=== PATIENT | male | born 1960 | race Caucasian/White ===

== ENCOUNTER 2017-06-24 09:07 | Observation (INO) | payer OTHER ==
--- OUTSIDE RECORDS SUMMARY | 2017-06-24 09:48 | XMS REPORT ---
:1960 External Reference #:[id number] Author Organization [employer] Address [address] [facility] [address] [place] [address] Phone [phone] Care Team Providers Name Role Phone Daisy Ardon NP Primary Care Physician Unavailable Payers Type Date Identification Numbers Payment Provider Subscriber Commercial Policy Number: [id number] [employer] Number: [id number] PayID: [id number] [place] [address] Problems Date Description Provider Status Onset: 01/27/2013 Cervical spondylosis without myelopathy Jose J Gannon M.D. 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 Depakote 05/29/ Active Tablets DR 500mg 60tab 1 tab by G44.019 Jose J Oden 2018 s mouth twice a amelia White M.D. Bobo 03/17/ Active Capsules 300mg 90cap 1 po qam and Jose J Oden Carbonate 2018 s 2 qhs Zay White Gabapentin 12/24/ Active Capsules 300mg 120ca 1 po bid and G44.019 Jose J Oedn 2016 ps 2 qhs Zay White Sumatriptan 10/19/ Active Solution 4mg/0.5ML 12uni 1 injection Jose J Álvarez 2014 Auto-Inject ts twice daily Christopher, as needed on M.D. no more than 4 days/week. please include autoinjector with instructions. -out of med Oxycodone HCL 02/03/ Active Tablets 5mg 6tabs 1-2 by mouth Janet 2013 twice a day Peter, as needed for M.D. cluster headache. MDD 2 tabs. Verapamil HCL 07/05/ Active Tablets 80mg 240ta 3 po qa and Jose J Oden 2013 bs at night and Christopher, 2 at midday M.DHumble Tylenol 0000/ Active Capsules 325mg 2 tablets Unknown 0000 every 4 hours as needed for pain Prednisone 05/08/ Hx Tablets 20mg 30tab 4 tabs for 3 G44.019 Jose J Oden 2017 - s days then 3 Christopher, 05/28/ tabs for 3 M.D. 2017 days then 2 tab for 3 days then 1 tab for 3 days Prednisone 05/15/ Hx Tablets 20mg 30tab 4 tabs for 3 Jose J Oden 2016 - s days then 3 Christopher, 12/23/ tabs for 3 M.D. 2016 days then 2 tab for 3 days then 1 tab for 3 days-complete d Bobo 04/18/ Hx Capsules 300mg 60cap 1 po qday for Jose J SHumble Carbonate 2016 - s 1 week then 1 Christopher 07/17/ bid-not M.D. 2016 taking anymore. Prednisone 02/13/ Hx Tablets 20mg 30tab 4 tabs for 3 Jose J Oedn 2015 - s days then 3 Christopher, 03/03/ tabs for 3 M.D. 2016 days then 2 tab for 3 days then 1 tab for 3 days Topiramate 11/04/ Hx Caps 15mg 1 by mouth Jose J Oden 2015 - Sprinkle twice a day Christopher M.DHumble 2015 Topiramate 02/28/ Hx Tablets 100mg 60tab 1 by mouth Jose J Oden 2015 - s twice a day Christopher .DHumble 2015 Topiramate 02/13/ Hx Tablets 25mg 180ta 1 by mouth Jose J Oden 2014 - twice a day Regina, 02/28/ for 3 days M.D. 2015 then 2 twice a day for 3 days then 3 twice a day Prednisone 02/09/ Hx Tablets 20mg 30tab 4 po qam for SHumble 2014 3 days then 3 , 03/21/ qam for 3 M.D. 2016 days then 2 qam for 3 days then 1 qam for 3 days Depakote 10/27/ Hx Tablets DR 500mg 120ta 1000mg by Michelle 2014 - mouth bid. Mehdi, PROFESSIONAL MODEL 2015 Sumatriptan 10/19/ Hx Solution 4mg/0.5ML Michelle Succinate 2014 - Gnjuan, PROFESSIONAL MODEL Refill 2014 Zithromax 10/10/ Hx Tablets 250mg 1tabs Take as 381.01 Michelle Z-Aguilar 2014 - directed Gnjuan, PROFESSIONAL MODEL 2014 Prednisone 10/05/ Hx Tablets 20mg 30tab 2 tab for 3 Michelle 2014 days then 1 MORAIMA Harding 10/24/ tab for 3 2014 days Imitrex 09/01/ Hx Tablets 100mg 10tab 1 tab at Michelle 2014 onset of Gnjuan, PROFESSIONAL MODEL 09/01/ migraine, on 2014 no more than 2 days per week. Imitrex /10/ Hx Tablets 50mg 12tab take 1 tab at [place] 2014 onset of Mehdi, PROFESSIONAL MODEL 09/01/ migraine. june 2014 repeat once in 2 hours if needed. take on no more than 2 days a week. Sumatriptan 09/01/ Hx Solution 20mg/Act 12via 1 dose Michelle 2014 - nasally at Mehdi, PROFESSIONAL MODEL 10/05/ onset of 2014 headache. Use on no more than 2 days a week. Bobo 06/16/ Hx Capsules 300mg 60cap 1 by mouth Jose J Oden Carbonate 2014 every morning , and 1 every M.D. 2015 night at bedtime Prednisone 02/02/ Hx Tablets 20mg 30tab 4 tabs for 3 Jose J Oden 2013 - days then 3 , 06/15/ tabs for 3 M.D. 2014 days then 2 tab for 3 days then 1 tab for 3 days Hydrocodone-A 10/19/ Hx Tablets 7.5-325mg 60tab 1 po Q6h prn Jose J cetaminophen 2013 pain Glouster, M.D. 2014 Hydrocodone-A 10/13/ Hx Tablets 7.5-325mg 60tab 721.0 Jose J cetaminophen 2013 Glouster, M.D. 2014 Hydrocodone-A 09/20/ Hx Tablets 7.5-325mg 60tab 1 po q 6h prn 721.0 Jose J cetaminophen 2013 pain Glouster, M.D. 2013 Aleve 08/09/ Hx Capsules 220mg 60cap prn Jos Ej SHumble 2013 Christopher, M.D. 2015 Prednisone 07/05/ Hx Tablets 20mg 30tab 4 tabs for 3 S. 2013 days then 3 Christopher, 07/24/ tabs for 3 M.D. 2013 days then 2 tab for 3 days then 1 tab for 3 days No Active 01/25/ Unknown Medications 2012 - 2012 Sumatriptan 09/07/ Hx Solution 6mg/0.5ML 10uni 1 injection Michelle Succinate 2012 twice a day MORAIMA Harding 10/19/ as needed on 2014 no more than 2 days a week (please include autoinjector with instructions) Oxycodone/Tesfaye 09/07/ Hx Tablets 7.5-325mg 24tab 1 tab po tid Jose J Oden taminophen 2012 - prn headache Christopher, M.D. 2012 Bobo 09/07/ Hx Capsules 300mg 90cap 1 qam and 2 Jose J Carla. Carbonate 2012 - contra [facility] Christopher, M.D. 2012 Zomig ZMT 04/10/ Hx Tablets 5mg 10tab 1 bid prn Jose J Oden 2012 - Dispers s headache Christopher, M.D. 2012 Zomig 04/10/ Hx Solution 5mg 10uni 1 spray bid Jose J SHumble 2012 - ts prn headache Christopher, M.D. 2012 Depakote 03/24/ Hx Tablets DR 250mg 150ta 2 qam and 3 Jose J Oden 2012 - bs contra [facility] Christopher, M.D. 2012 Oxycodone HCL 03/11/ Hx Capsules 5mg 60cap 1 tid prn Jose J Oden 2012 - s pain Christopher, .D. 2012 Verapamil HCL 03/11/ Hx Tablets 120mg 150ta 1 tid for 1 Jose J SHumble 2012 - bs week then 2 Christopher, 01/06/ qam and 1 in M.D. 2013 PM and hs for 1 week then 2 qam, 1 in PM and 2 qhs Gabapentin 03/11/ Hx Capsules 300mg 150ca 1 qam and qhs Jose J SHumble 2012 - ps Christopher, .D. 2012 Zithromax 03/11/ Hx Tablets 500mg 5tabs 1 qd for 5 . Tri-Aguilar 2012 Christopher, .D. 2012 Prednisone 12/18/ Hx Tablets 20mg 20tab 4 tabs for 2 Jose J SHumble 2011 - days then 3 Christopher, 03/31/ tabs for 2 .D. 2012 days then 2 tab for 2 days then 1 tab for 2 days Bobo 12/18/ Hx Capsules 300mg 90cap 1 qam and 2 Jose J Akshat Carbonate 2011 - q Christopher, D. 2012 Zomig / Hx Nasal prn Jose J Oden - Christopher, D. 2012 Prednisone / Hx Tablets 1 tab x 10 Unknown - pt 01/06/ unsure of mg. 2012 Triamterene/H / Hx Capsules 37.5-25mg 1 by mouth Unknown ydrochlorothi 0000 - every day azide 2014 Coumadin / Hx Tablets 4mg as directed ( Unknown 0000 - currently 03/11/ taking 8 mg 2018 qd) Vital Signs Date Vital Result Comment 06/18/2017 Height 74 inches 6'2" Weight 211.00 lb Heart Rate 70 /min BP Systolic 116 mmHg BP Diastolic 82 mmHg Respiratory Rate 16 /min Pain Level 0 O2 % BldC Oximetry 98 % BMI (Body Mass Index) 27.1 kg/m2 05/29/2017 Height 74 inches 6'2" Weight 212.12 lb Heart Rate 78 /min BP Systolic 132 mmHg BP Diastolic 82 mmHg BMI (Body Mass Index) 27.2 kg/m2 05/08/2017 Height 74 inches 6'2" Weight 218.50 lb Heart Rate 82 /min BP Systolic Sitting 126 mmHg BP Diastolic Sitting 70 mmHg Respiratory Rate 16 /min BMI (Body Mass Index) 28.1 kg/m2 04/17/2017 Height 75 inches 6'3" Weight 216.00 lb Heart Rate 74 /min BP Systolic 118 mmHg BP Diastolic 78 mmHg BMI (Body Mass Index) 27.0 kg/m2 03/12/2017 Height 75 inches 6'3" Weight 203.00 lb Heart Rate 71 /min BP Systolic Sitting 116 mmHg BP Diastolic Sitting 68 mmHg Respiratory Rate 16 /min Pain Level 0 O2 % BldC Oximetry 97 % Ra BMI (Body Mass Index) 25.4 kg/m2 01/13/2017 Height 75 inches 6'3" Weight 203.00 lb Heart Rate 68 /min BP Systolic Sitting 138 mmHg BP Diastolic Sitting 70 mmHg Respiratory Rate 16 /min BMI (Body Mass Index) 25.4 kg/m2 12/24/2016 Height 75 inches 6'3" Weight 201.38 lb Heart Rate 78 /min BP Systolic 126 mmHg BP Diastolic 88 mmHg BMI (Body Mass Index) 25.2 kg/m2 07/17/2016 Height 75 inches 6'3" Weight 194.00 lb Heart Rate 80 /min BP Systolic 116 mmHg BP Diastolic 68 mmHg Respiratory Rate 16 /min BMI (Body Mass Index) 24.2 kg/m2 05/15/2016 Height 75 inches 6'3" Weight 195.00 lb Heart Rate 84 /min BP Systolic 98 mmHg BP Diastolic 68 mmHg Respiratory Rate 12 /min no difficulties breathing. Broke several ribs 3wk Pain Level 0 O2 % BldC Oximetry 98 % BMI (Body Mass Index) 24.4 kg/m2 04/18/2016 Height 75 inches 6'3" Weight 195.00 lb Heart Rate 78 /min BP Systolic Sitting 25917 mmHg Respiratory Rate 16 /min BMI (Body Mass Index) 24.4 kg/m2 11/05/2015 Height 75 inches 6'3" Weight 200.00 lb Heart Rate 83 /min BP Systolic Sitting 118 mmHg BP Diastolic Sitting 76 mmHg Respiratory Rate 16 /min O2 % BldC Oximetry 97 % BMI (Body Mass Index) 25.0 kg/m2 03/21/2015 Height 75 inches 6'3" Weight 200.00 lb Heart Rate 80 /min BP Systolic Sitting 118 mmHg BP Diastolic Sitting 64 mmHg Respiratory Rate 14 /min BMI (Body Mass Index) 25.0 kg/m2 02/28/2015 Height 75 inches 6'3" Weight 199.00 lb Heart Rate 76 /min BP Systolic Sitting 108 mmHg BP Diastolic Sitting 72 mmHg Respiratory Rate 14 /min BMI (Body Mass Index) 24.9 kg/m2 02/13/2015 Height 75 inches 6'3" Weight 208.00 lb Heart Rate 80 /min BP Systolic Sitting 112 mmHg BP Diastolic Sitting 68 mmHg Respiratory Rate 16 /min BMI (Body Mass Index) 26.0 kg/m2 12/15/2014 Height 75 inches 6'3" Weight 199.00 lb Heart Rate 68 /min BP Systolic Sitting 100 mmHg BP Diastolic Sitting 62 mmHg Respiratory Rate 12 /min BMI (Body Mass Index) 24.9 kg/m2 12/12/2014 Height 75 inches 6'3" Heart Rate 88 /min BP Systolic Sitting 102 mmHg BP Diastolic Sitting 64 mmHg Respiratory Rate 16 /min 11/17/2014 Height 75 inches 6'3" Weight 199.00 lb Heart Rate 88 /min BP Systolic Sitting 130 mmHg BP Diastolic Sitting 62 mmHg Respiratory Rate 14 /min BMI (Body Mass Index) 24.9 kg/m2 10/25/2014 Height 75 inches 6'3" Weight 230.00 lb Heart Rate 92 /min BP Systolic Sitting 106 mmHg BP Diastolic Sitting 70 mmHg Respiratory Rate 20 /min BMI (Body Mass Index) 28.7 kg/m2 10/10/2014 Height 75 inches 6'3" Heart Rate 80 /min BP Systolic Sitting 116 mmHg BP Diastolic Sitting 74 mmHg Respiratory Rate 16 /min 08/01/2014 Height 75 inches 6'3" Heart Rate 68 /min BP Systolic Sitting 108 mmHg BP Diastolic Sitting 66 mmHg Respiratory Rate 16 /min 06/30/2014 Height 75 inches 6'3" Weight 211.00 lb Heart Rate 80 /min BP Systolic Sitting 122 mmHg BP Diastolic Sitting 68 mmHg Respiratory Rate 16 /min BMI (Body Mass Index) 26.4 kg/m2 06/16/2014 Height 75 inches 6'3" Weight 205.00 lb Heart Rate 76 /min BP Systolic Sitting 104 mmHg BP Diastolic Sitting 68 mmHg Respiratory Rate 16 /min BMI (Body Mass Index) 25.6 kg/m2 03/29/2014 Height 75 inches 6'3" Weight 207.00 lb Heart Rate 72 /min BP Systolic Sitting 112 mmHg BP Diastolic Sitting 70 mmHg Respiratory Rate 16 /min BMI (Body Mass Index) 25.9 kg/m2 10/31/2013 Height 75 inches 6'3" Weight 208.00 lb Heart Rate 60 /min BP Systolic Sitting 120 mmHg BP Diastolic Sitting 70 mmHg Pain Level 6 neck BMI (Body Mass Index) 26.0 kg/m2 10/13/2013 Height 75 inches 6'3" Weight 213.00 lb Heart Rate 78 /min BP Systolic Sitting 122 mmHg BP Diastolic Sitting 70 mmHg Pain Level 9 R shoulder & neck BMI (Body Mass Index) 26.6 kg/m2 09/20/2013 Height 75 inches 6'3" Weight 204.00 lb Heart Rate 82 /min BP Systolic Sitting 120 mmHg BP Diastolic Sitting 84 mmHg Pain Level 9 neck BMI (Body Mass Index) 25.5 kg/m2 08/09/2013 Height 75 inches 6'3" Weight 204.00 lb Heart Rate 84 /min BP Systolic Sitting 106 mmHg BP Diastolic Sitting 64 mmHg Respiratory Rate 16 /min BMI (Body Mass Index) 25.5 kg/m2 07/05/2013 Height 75 inches 6'3" Weight 200.00 lb Heart Rate 92 /min BP Systolic Sitting 118 mmHg BP Diastolic Sitting 76 mmHg Respiratory Rate 20 /min BMI (Body Mass Index) 25.0 kg/m2 04/18/2013 Height 73 inches 6'1" Weight 210.00 lb BP Systolic 114 mmHg BP Diastolic 82 mmHg Pain Level 0 BMI (Body Mass Index) 27.7 kg/m2 03/28/2013 Height 73 inches 6'1" Weight 208.00 lb BP Systolic 102 mmHg BP Diastolic 70 mmHg Pain Level 0 BMI (Body Mass Index) 27.4 kg/m2 03/07/2013 Height 73 inches 6'1" Weight 201.00 lb BP Systolic 116 mmHg BP Diastolic 80 mmHg Pain Level 0 BMI (Body Mass Index) 26.5 kg/m2 01/25/2013 Height 73 inches 6'1" Weight 199.00 lb BP Systolic 106 mmHg BP Diastolic 70 mmHg Pain Level 9 neck BMI (Body Mass Index) 26.3 kg/m2 01/06/2013 Height 73 inches 6'1" Weight 199.00 lb BP Systolic 112 mmHg BP Diastolic 80 mmHg Pain Level 9 neck, right shoulder and arm BMI (Body Mass Index) 26.3 kg/m2 09/28/2012 Height 73 inches 6'1" Heart Rate 64 /min BP Systolic Sitting 96 mmHg BP Diastolic Sitting 58 mmHg Respiratory Rate 12 /min 09/14/2012 Height 73 inches 6'1" Heart Rate 76 /min BP Systolic Sitting 118 mmHg BP Diastolic Sitting 70 mmHg Respiratory Rate 12 /min 09/07/2012 Height 73 inches 6'1" Weight 225.00 lb Heart Rate 68 /min BP Systolic Sitting 130 mmHg BP Diastolic Sitting 78 mmHg Respiratory Rate 12 /min BMI (Body Mass Index) 29.7 kg/m2 08/03/2012 Height 73 inches 6'1" Weight 225.00 lb Heart Rate 80 /min BP Systolic 106 mmHg BP Diastolic 68 mmHg Respiratory Rate 12 /min BMI (Body Mass Index) 29.7 kg/m2 05/05/2012 Heart Rate 82 /min BP Systolic Sitting 122 mmHg BP Diastolic Sitting 76 mmHg Respiratory Rate 16 /min 03/31/2012 Heart Rate 74 /min BP Systolic 112 mmHg BP Diastolic 72 mmHg Respiratory Rate 14 /min Results Test Date Test Result H/L Range Note Laboratory test finding 12/14/2014 TSH (Thyroid Stim 1.14 ?IU/mL 0.34- 5.60 Horm) Basic Metabolic Panel 12/14/2014 Sodium 138 mmol/L 133-145 Potassium 3.9 mmol/L 3.5-5.0 Chloride 104 mmol/L 101-111 Co2 Carbon Dioxide 27 mmol/L 22-32 Anion Gap 7 mmol/L 2-11 Glucose 89 mg/dL 70-100 Blood Urea Nitrogen 8 mg/dL 6-24 Creatinine 0.94 mg/dL 0.67-1.17 BUN/Creatinine Ratio 8.5 8-20 Calcium 9.0 mg/dL 8.6-10.3 Egfr Non- 83.9 >60 Egfr 108.0 >60 1 Laboratory test finding 12/14/2014 Bobo 0.31 mmol/L Low 0.6-1.2 Laboratory test finding 11/26/2014 Valproic Acid <pending> (Depakene) Bobo <pending> Basic Metabolic Panel 02/11/2013 Sodium 136 mmol/L 133-145 Potassium 4.2 mmol/L 3.5-5.0 Chloride 102 mmol/L 101-111 Co2 Carbon Dioxide 28.0 mmol/L 22-32 Anion Gap 6.0 mmol/L 2-11 Glucose 94 mg/dL 70-100 Blood Urea Nitrogen 8 mg/dL 6-24 Creatinine 0.80 mg/dL 0.50-1.40 BUN/Creatinine Ratio 10.0 8-20 Calcium 9.2 mg/dL 8.1-9.9 Egfr Non- 101.9 >60 Egfr 131.1 >60 2 CBC No Diff 02/11/2013 White Blood Count 9.7 10^3/uL 4.8-10.8 Red Blood Count 5.00 10^6/uL 4.0-5.4 Hemoglobin 14.7 g/dL 14.0-18.0 Hematocrit 43 % 42-52 Mean Corpuscular Volume 86 fL 80-94 Mean Corpuscular Hemoglobin 29 pg 27-31 Mean Corpuscular HGB Conc 34 g/dL 31-36 Red Cell Distribution Width 13 % 10.5-15 Platelet Count 298 10^3/uL 150-450 Mean Platelet Volume 8 um3 7.4-10.4 1 Because ethnic data is not always readily available, this report includes an eGFR for both -Americans and non- Americans. The National Kidney Disease Education Program (NKDEP) does not endorse the use of the MDRD equation for patients that are not between the ages of 18 and 70, are , have extremes of body size, muscle mass, or nutritional status, or are non- or non-. According to the National Kidney Foundation, irrespective of diagnosis, the stage of the disease is based on the level of kidney function: Stage Description GFR(mL/min/1.73 m(2)) 1 Kidney damage with normal or decreased GFR 90 2 Kidney damage with mild decrease in GFR 60-89 3 Moderate decrease in GFR 30-59 4 Severe decrease in GFR 15-29 5 Kidney failure <15 (or dialysis) 2 Because ethnic data is not always readily available, this report includes an eGFR for both -Americans and non- Americans. The National Kidney Disease Education Program (NKDEP) does not endorse the use of the MDRD equation for patients that are not between the ages of 18 and 70, are , have extremes of body size, muscle mass, or nutritional status, or are non- or non-. According to the National Kidney Foundation, irrespective of diagnosis, the stage of the disease is based on the level of kidney function: Stage Description GFR(mL/min/1.73 m(2)) 1 Kidney damage with normal or decreased GFR 90 2 Kidney damage with mild decrease in GFR 60-89 3 Moderate decrease in GFR 30-59 4 Severe decrease in GFR 15-29 5 Kidney failure <15 (or dialysis) Procedures Date CPT Code Description Status 02/18/2013 20667 Anterior Instrumentation 2-3 Vertebral Segments Completed 02/18/2013 23203 arthrodesis,anterior interbody incl disc space Completed prep,discectomy,de 02/18/2013 87909 Allograft For Spine Surgery,Structural ([facility]) Completed Encounters Type Date Location Provider CPT E/M Dx Office Visit 05/29/2017 [facility] Jose J White 82764 G44.019 9:15a M.D. Office Visit 05/08/2017 [facility] Jose J White 08029 G44.019 11:15a M.D. Office Visit 04/17/2017 [facility] Jose J White 94744 G44.019 8:30a M.D. Office Visit 03/12/2017 Hannah White 20876 G44.019 11:30a [facility] R45.4 [facility] [address]4400 G44.019 [facility] White M.D. Office Visit 12/24/2016 10:45a [facility] Jose J Oden 89778 G44.Harjit White M.D. Office Visit 07/17/2016 11:45a Hannah Oden 09992 G44.019 [facility] White M.D. Office Visit 05/15/2016 1:45p Hannah Oden 25078 G44.019 [facility] White M.D. Office Visit 04/18/2016 11:45a Gilbert Oden 35360 G44.019 Services Of Basilio White M.D. Office Visit 11/05/2015 3:00p Gilbert Oden 71351 G44.019 Services Of Basilio White M.D. Office Visit 03/21/2015 4:00p [facility] Jose J Oden 73388 G44.019 Services Of Basilio White M.D. I82.402 Office Visit 02/28/2015 4:00p [facility] Jose J Oden 54042 G44.019 Services Of Basilio White M.D. Office Visit 02/13/2015 10:45a [facility] Jose J Oden 54563 G44.019 Zay White Office Visit 12/15/2014 10:45a [facility] Jose J Oden 56385 G44.019 Zay White Office Visit 12/12/2014 3:00p [facility] [place] [address] G44.019 Services Of [employer] Clerk Office Visit 11/17/2014 3:00p [facility] [place] [address] G44.019 Services Of [employer] Clerk Office Visit 10/25/2014 3:00p [facility] [place] [address] 339.01 Services Of [employer] Control Clerk Office Visit 10/10/2014 3:00p [facility] [place] [address] 339.01 Services Of Invoice Control Clerk 381.01 Office Visit 10/05/2014 3:00p [facility] [place] [address] 339.01 Services Of [employer] Control Clerk Office Visit 08/01/2014 3:00p [facility] [place] [address] 339.01 Services Of [employer] Control Clerk Office Visit 06/30/2014 3:00p [facility] [place] [address] 339.01 Services Of [employer] Clerk Office Visit 06/16/2014 3:30p [facility] Jose J White 15380 339.01 Services Of [employer] Control Clerk M.D. Office Visit 03/29/2014 1:15p [facility] Jose J White 48560 339.01 Services Of [employer] Control Clerk M.D. Office Visit 10/31/2013 3:00p [facility] Jose J Gannon 19852 721.0 Invoice Control Clerk M.D. Office Visit 10/13/2013 3:00p [facility] Jose J Gannon 46268 721.0 Invoice Control Clerk M.D. Office Visit 09/20/2013 3:00p [facility] Jose J Gannon 76546 721.0 Invoice Control Clerk M.D. Office Visit 08/09/2013 4:00p [facility] Jose J White, 09025 339.01 Services Of Invoice Control Clerk M.D. Office Visit 07/05/2013 2:45p [facility] Jose J White, 61822 339.01 Services Of Invoice Control Clerk M.D. Office Visit 01/25/2013 1:00p [facility] Jose J Gannon 74665 721.0 Invoice Control Clerk M.D. Office Visit 01/06/2013 11:30a [facility] Jose J Gannon 09377 721.0 Invoice Control Clerk M.D. Office Visit 11/30/2012 2:30p [facility] Jose J White 40987 339.01 Services Of Invoice Control Clerk M.D. Office Visit 09/28/2012 4:00p [facility] Jose J White, 41987 339.01 Services Of Invoice Control Clerk M.D. Office Visit 09/14/2012 4:00p [facility] Jose J White, 00268 339.01 Services Of Invoice Control Clerk M.D. Office Visit 09/07/2012 4:00p [facility] Jose J White, 99043 339.01 Services Of Invoice Control Clerk M.D. Office Visit 08/03/2012 3:45p [facility] Jose J White, 02577 339.01 Services Of Invoice Control Clerk M.D. Office Visit 05/05/2012 3:00p [facility] Jose J White, 10226 339.01 Services Of Invoice Control Clerk M.D. Office Visit 03/31/2012 3:00p [facility] Jose J White, 38953 339.01 Services Of Invoice Control Clerk M.D. Office Visit 03/11/2012 12:00p [place]/Gilbert White, 24848 339.01 Neurologic Serv Of [employer] Control Clerk M.D. Office Visit 10/22/2011 1:30p [place]Gilbert White 83049 339.01 Neurologic Serv Of [employer] Control Clerk M.D. Plan of Care Future Appointment(s):07/13/2017 8:30 am - Jose J White M.D. at [facility]/ 3:45 pm - Jose J White M.D. at [facility] [address]06/18/2017 - Jose J White M.D.G44.011 Episodic cluster headache, intractableNew Medication:Baclofen 10 mgFollow up:2 - 4 WEEKSRecommendations:stop depakote Start Baclofen and follow directions on bottle
--- OUTSIDE RECORDS SUMMARY | 2017-06-24 09:48 | XMS REPORT ---
:1960 External Reference #:[id number] Author Organization Sequence Address [address] [facility] [address] [place] [address] Phone [phone] Care Team Providers Name Role Phone Daisy Ardon NP Primary Care Physician Unavailable Payers Type Date Identification Numbers Payment Provider Subscriber Commercial Policy Number: [id number] [employer] Number: [id number] PayID: [id number] [place] [address] Problems Date Description Provider Status Onset: 01/27/2013 Cervical spondylosis without myelopathy Jose J Gannon M.D. 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 Pewamo 03/17/ Active Capsules 300mg 90cap 1 po qam and Jose J Oden Carbonate 2017 s 2 morgan White M.D. Gabapentin 12/24/ Active Capsules 300mg 120ca 1 po bid and G44.019 Jose J Oden 2017 ps 2 qlamar White M.D. Sumatriptan 10/19/ Active Solution 4mg/0.5ML 12uni 1 injection Jose J Álvarez 2014 Auto-Inject ts twice daily Christopher, as needed on M.D. no more than 4 days/week. please include autoinjector with instructions. Oxycodone HCL 02/03/ Active Tablets 5mg 6tabs 1-2 by mouth Janet 2013 twice a day Souleymanedery, as needed for M.D. cluster headache. MDD 2 tabs. Verapamil HCL 07/05/ Active Tablets 80mg 240ta 3 po qam and Jose J Oden 2013 bs at night and Christopher, 2 at midday M.D. Tylenol 0000/ Active Capsules 325mg 2 tablets Unknown 0000 every 4 hours as needed for pain Prednisone 05/08/ Hx Tablets 20mg 30tab 4 tabs for 3 G44.019 Jose J Oden 2017 - days then 3 Christopher, 05/28/ tabs for 3 M.D. 2017 days then 2 tab for 3 days then 1 tab for 3 days Prednisone 05/15/ Hx Tablets 20mg 30tab 4 tabs for 3 Jose J Oden 2016 - days then 3 Christopher, 12/23/ tabs for 3 M.D. 2016 days then 2 tab for 3 days then 1 tab for 3 days-complete d Pewamo 04/18/ Hx Capsules 300mg 60cap 1 po qday for Jose J Oden Carbonate 2016 - 1 week then 1 Christopher, 07/17/ bid-not M.D. 2016 taking anymore. Prednisone 02/13/ Hx Tablets 20mg 30tab 4 tabs for 3 Jose J Oden 2015 - days then 3 Christopher, 03/03/ tabs for 3 M.D. 2016 days then 2 tab for 3 days then 1 tab for 3 days Topiramate 11/04/ Hx Caps 15mg 1 by mouth Jose J Oden 2015 - Sprinkle twice a day Christopher, M.D. 2015 Topiramate 02/28/ Hx Tablets 100mg 60tab 1 by mouth Jose J Oden 2015 - s twice a day Christopher, M.D. 2015 Topiramate 02/13/ Hx Tablets 25mg 180ta 1 by mouth Jose J Oden 2014 - bs twice a day Christopher, 02/28/ for 3 days M.D. 2015 then 2 twice a day for 3 days then 3 twice a day Prednisone 02/09/ Hx Tablets 20mg 30tab 4 po qam for Jose J S. 2014 - 3 days then 3 Christopher, 03/21/ qam for 3 M.D. 2015 days then 2 qam for 3 days then 1 qam for 3 days Depakote 10/27/ Hx Tablets DR 500mg 120ta 1000mg by Michelle 2014 - mouth bid. Mehdi, [employer] 2015 Sumatriptan 10/19/ Hx Solution 4mg/0.5ML Michelle Succinate 2015 - Cartridge Gnjuan, [employer]ERT Refill 2014 Zithromax 10/10/ Hx Tablets 250mg 1tabs Take as 381.01 Michelle Z-Aguilar 2014 - directed Mehdi [employer] 2014 Prednisone 10/05/ Hx Tablets 20mg 30tab 2 tab for 3 Michelle 2014 days then 1 MORAIMA Harding 10/24/ tab for 3 2014 days Imitrex 09/01/ Hx Tablets 100mg 10tab 1 tab at [place] 2014 onset of MORAIMA Harding 09/01/ migraine, on 2014 no more than 2 days per week. Imitrex 10/ Hx Tablets 50mg 12tab take 1 tab at Michelle 2014 onset of MORAIMA Harding 09/01/ migraine. june 2014 repeat once in 2 hours if needed. take on no more than 2 days a week. Sumatriptan 09/01/ Hx Solution 20mg/Act 12via 1 dose Michelle 2014 - nasally at MORAIMA Harding 10/05/ onset of 2014 headache. Use on no more than 2 days a week. Pewamo 06/16/ Hx Capsules 300mg 60cap 1 by mouth Jose J S. Carbonate 2014 every morning [place], 11/03/ and 1 every M.D. 2015 night at bedtime Prednisone 02/02/ Hx Tablets 20mg 30tab 4 tabs for 3 Jose J S. 2013 - days then 3 [place], 06/15/ tabs for 3 M.D. 2014 days then 2 tab for 3 days then 1 tab for 3 days Hydrocodone-A 10/19/ Hx Tablets 7.5-325mg 60tab 1 po Q6h prn Jose J cetaminophen 2013 - pain Cowen, 03/28/ M.D. 2014 Hydrocodone-A 10/13/ Hx Tablets 7.5-325mg 60tab 721.0 Jose J cetaminophen 2013 - Cowen, M.D. 2014 Hydrocodone-A 09/20/ Hx Tablets 7.5-325mg 60tab 1 po q 6h prn 721.0 Jose J cetaminophen 2013 - pain Jagdeep, M.D. 2013 Aleve 08/09/ Hx Capsules 220mg 60cap prn Jose J Oden 2013 Christopher, M.D. 2014 Prednisone 07/05/ Hx Tablets 20mg 30tab 4 tabs for 3 SHumble 2013 days then 3 Christopher, 07/24/ tabs for 3 M.D. 2013 days then 2 tab for 3 days then 1 tab for 3 days No Active 01/25/ Hx Unknown Medications 2012 - 2012 Sumatriptan 09/07/ Hx Solution 6mg/0.5ML 10uni 1 injection Michelle Succinate 2012 - twice a day MORAIMA Harding 10/19/ as needed on 2014 no more than 2 days a week (please include autoinjector with instructions) Oxycodone/Tesfaye 09/07/ Hx Tablets 7.5-325mg 24tab 1 tab po tid Jose J Oden taminophen 2012 - prn headache Christopher, M.D. 2012 Pewamo 09/07/ Hx Capsules 300mg 90cap 1 qam and 2 Jose J Carla. Carbonate 2012 - s [facility] Christopher, M.D. 2012 Zomig ZMT 04/10/ Hx Tablets 5mg 10tab 1 bid prn Jose J Oden 2012 - Dispers s headache Christopher, M.D. 2012 Zomig 04/10/ Hx Solution 5mg 10uni 1 spray bid Jose J Oden 2012 - ts prn headache Christopher, M.D. 2012 Depakote 03/24/ Hx Tablets DR 250mg 150ta 2 qam and 3 Jose J S. 2012 - [facility] Christopher, M.D. 2012 Oxycodone HCL 03/11/ Hx Capsules 5mg 60cap 1 tid prn Jose J Oden 2012 - s pain Christopher, M.D. 2012 Verapamil HCL 03/11/ Hx Tablets 120mg 150ta 1 tid for 1 Jose J SHumble 2012 - bs week then 2 Christopher, 01/06/ qam and 1 in M.D. 2012 PM and hs for 1 week then 2 qam, 1 in PM and 2 qhs Gabapentin 03/11/ Hx Capsules 300mg 150ca 1 qam and qhs Jose J SHumble 2012 - ps Christopher, .D. 2012 Zithromax 03/11/ Hx Tablets 500mg 5tabs 1 qd for 5 S. Tri-Aguilar 2012 - Christopher, .D. 2012 Prednisone 12/18/ Hx Tablets 20mg 20tab 4 tabs for 2 Jose J SHumble 2011 then 3 Christopher, 03/31/ tabs for 2 .D2012 days then 2 tab for 2 days then 1 tab for 2 days Pewamo 12/18/ Hx Capsules 300mg 90cap 1 qam and 2 Jose J Oden Carbonate 2011 - qhs Christopher, .D. 2012 Zomig / Hx Nasal prn Jose J Akshat - Christopher, .D. 2012 Prednisone / Hx Tablets 1 tab x 10 Unknown - days pt 01/06/ unsure of mg. 2012 Triamterene/H / Hx Capsules 37.5-25mg 1 by mouth Unknown ydrochlorothi 0000 - every day azide 2014 Coumadin / Hx Tablets 4mg as directed ( Unknown 0000 - currently 03/11/ taking 8 mg 2018 qd) Vital Signs Date Vital Result Comment 05/29/2017 Height 74 inches 6'2" Weight 212.12 [...] Heart Rate 78 /min BP Systolic Sitting 66596 mmHg Respiratory Rate 16 /min BMI (Body [...] 108.0 >60 1 Laboratory test finding 12/14/2014 [place] 0.31 mmol/L Low 0.6-1.2 Laboratory test finding 11/26/2014 Valproic Acid <pending> (Depakene) [place] <pending> Basic Metabolic Panel 02/11/2013 Sodium 136 [...] Procedures Date CPT Code Description Status 02/18/2013 14921 Anterior Instrumentation 2-3 Vertebral Segments Completed 02/18/2013 65342 arthrodesis,anterior interbody incl disc space Completed prep,discectomy,de 02/18/2013 89538 Allograft For Spine Surgery,Structural ([place]) Completed Encounters Type Date Location Provider CPT E/M Dx Office Visit 05/08/2017 [facility] Jose J White 53419 G44.019 11:15a M.D. Office Visit 04/17/2017 [facility] Jose J White 87026 G44.019 8:30a M.D. Office Visit 03/12/2017 [place]/Gilbert White 23133 G44.019 11:30a [facility] Collazo R45.4 Office Visit 01/13/2017 3:30p [place] 10554 G44.019 Services Of Basilio White M.D. Office Visit 12/24/2016 10:45a Neurohospitalist Kenisha Oden 23278 G44.019 Zay White Office Visit 07/17/2016 11:45a Jose MariaGilbert Oden 53852 G44.019 [facility] White M.D. Office Visit 05/15/2016 1:45p Hannah Oden 75051 G44.019 [facility] White M.D. Office Visit 04/18/2016 11:45a Gilbert Oden 97699 G44.019 Services Of Basilio White M.D. Office Visit 11/05/2015 3:00p Gilbert Oden 82682 G44.019 Services Of Basilio White M.D. Office Visit 03/21/2015 4:00p Gilbert Oden 20884 G44.019 Services Of Basilio White M.D. I82.402 Office Visit 02/28/2015 4:00p Gilbert Oden 47768 G44.019 Services Of Basilio White M.D. Office Visit 02/13/2015 10:45a [facility] Jose J Oden 19719 G44.019 Zay White Office Visit 12/15/2014 10:45a Neurohospitalist [facility] Jose J Oden 97413 G44.019 Zay White Office Visit 12/12/2014 3:00p [place] [facility] Michelle Mehdi, [employer]ESSERT 65901 G44.019 Services Of [employer] Office Visit 11/17/2014 3:00p [place] [facility] Michelle Harding, [employer]ESSERT 88244 G44.019 Services [facility] [employer] Office Visit 10/25/2014 3:00p [place] [facility] Michelle Harding, [employer]ERT 47987 339.01 Services Of [employer] Office Visit 10/10/2014 3:00p [place] [facility] Michelle Mehdi, [employer]ERT 28540 339.01 Services Of [employer] 381.01 Office Visit 10/05/2014 3:00p [place] [facility] Michelle Harding, [employer]ESSERT 96625 339.01 Services Of [employer] Office Visit 08/01/2014 3:00p [place] [facility] Michelle Harding, [employer]ESSERT 93000 339.01 Services Of [employer] Office Visit 06/30/2014 3:00p [place] [facility] Michelle Harding, [employer]ESSERT 14009 339.01 Services Of [employer] Office Visit 06/16/2014 3:30p [place] [facility] Jose J White, 51626 339.01 Services Of [employer] M.D. Office Visit 03/29/2014 1:15p [place] [facility] Jose J White 53401 339.01 Services Of [employer] M.D. Office Visit 10/31/2013 3:00p [facility] Services Of Jose J Gannon 03449 721.0 Basilio M.D. Office Visit 10/13/2013 3:00p [facility] Jose J Gannon 70607 721.0 Basilio M.D. Office Visit 09/20/2013 3:00p [facility] Jose J Gannon 51012 721.0 Basilio M.D. Office Visit 08/09/2013 4:00p [place] [facility] Jose J White 78032 339.01 Services Of [employer] M.D. Office Visit 07/05/2013 2:45p [place] [facility] Jose J White 31410 339.01 Services Of [employer] M.D. Office Visit 01/25/2013 1:00p [facility] Of Jose J Gannon 19283 721.0 Basilio M.D. Office Visit 01/06/2013 11:30a [facility] Of Jose J Gannon 30495 721.0 [employer] M.D. Office Visit 11/30/2012 2:30p [place] [facility] Jose J White, 02914 339.01 Services Of [employer] M.D. Office Visit 09/28/2012 4:00p [place] [facility] Jose J White, 39710 339.01 Services Of [employer] M.D. Office Visit 09/14/2012 4:00p [place] [facility] Jose J White, 39084 339.01 Services Of [employer] M.D. Office Visit 09/07/2012 4:00p [place] [facility] Jose J White, 94306 339.01 Services Of [employer] M.D. Office Visit 08/03/2012 3:45p [place] [facility] Jose J White, 30422 339.01 Services Of [employer] M.D. Office Visit 05/05/2012 3:00p [place] [facility] Jose J White, 30963 339.01 Services Of [employer] M.D. Office Visit 03/31/2012 3:00p [place] [facility] Jose J White, 19676 339.01 Services Of [employer] M.D. Office Visit 03/11/2012 12:00p [place]/Gilbert White, 09713 339.01 [facility] [employer] M.D. Office Visit 10/22/2011 1:30p Jose Maria/Gilbert White, 26468 339.01 [facility] M.D. Plan of Care Future Appointment(s):07/13/2017 8:30 am - Jose J White M.D. at [place] [facility]10/13/2017 3:45 pm - Jose J White M.D. at [place] [facility]05/29/2017 - Jose J White M.D.G44.019 Episodic cluster headache, not intractableNew Medication:Depakote 500 mgFollow up:2 - 4 WEEKS
[2017-06-24 10:54] LABS: ABS Basophils 0.2 10^3/ul (0-0.2); ABS Eosinophils 0.2 10^3/ul (0-0.6); ABS Lymphocytes 1.8 10^3/ul (1.0-4.8); ABS Monocytes 0.7 10^3/ul (0-0.8); ABS Neutrophils 7.8 10^3/ul (1.5-7.7); ABS Nucleated RBC 0 10^3/ul; Eosinophil % 2.2 % (0-6); Hematocrit 44 % (42-52); Lymphocyte % 17.1 % (25-47); Mean Corpuscular HGB Conc 34 g/dl (31-36); Mean Corpuscular Hemoglobin 31 pg (27-31); Mean Corpuscular Volume 91 fL (80-94); Mean Platelet Volume 7.2 um3 (7.4-10.4); Nucleated Red Blood Cells % 0; Platelet Count 267 10^3/ul (150-450); Red Blood Count 4.79 10^6/ul (4.0-5.4); Red Cell Distribution Width 14 % (10.5-15); White Blood Count 10.8 10^3/ul (3.5-10.8)
[2017-06-24] MEDS ORDERED: Dihydroergotamine (D.H.E.)* 1 MG/ML 1 ML AMP IV SLOW PU ONE ×2 (11:05)
[2017-06-24 11:13] LABS: EGFR Non-African American 89.9 (>60)
[2017-06-24] MEDS: Metoclopramide IV* 5 MG/ML 2 ML VIAL IV PRN (11:42)
[2017-06-24] MEDS ORDERED: methylPREDNISolone 125 MG* 2 ML VIAL IV SCH (12:00)
[2017-06-24] MEDS: Verapamil TAB* 80 MG PO SCH (12:12)
[2017-06-24] MEDS: methylPREDNISolone 125 MG* 250 MG in NS 0.9% 100 ML* 100 ML IVPB SCH (12:18)
--- NOTE | 2017-06-24 14:05 | CONS ---
NEUROLOGY CONSULTATION REPORT: DATE OF CONSULT: 06/24/17 REASON FOR CONSULT: Neurology was consulted by Dr. Cleaning to evaluate for consistent chronic cluster headaches. The patient was a direct admit by Dr. Jose J White. The history was obtained by the patient and by discussing the case with Dr. hWite. CHIEF COMPLAINT: Intermittent severe headaches. HISTORY OF PRESENT ILLNESS: Jeremias Foreman is a 56-year-old right-handed man with history of cluster headache for 10 years, cervical spondylosis status post ACDF multilevel, chronic shoulder pain, who has no history of cardiovascular disease, who has had increased episodes of severe headaches. The patient has had the same type of headache for the last 10 years; however, the frequency and severity of the headaches have changed. Over the last 2 months, the patient has headaches almost daily. He used to have headache-free periods of 2-3 month intervals at least 3-4 times a year. However over the last 2 months, the patient again has had headaches frequently. The headaches can last minutes up to 2 hours. If he takes sumatriptan, that can get rid of the headache within 10 minutes. If he does not take the sumatriptan, the headaches can last for 2- 3 hours. The headaches used to come only at night but now seem to be sporadic throughout the day. His last headache was last night. He describes the pain as stabbing pain that starts in the left facial region radiating to the left temporal region. When he does have the pain, the pain is 10/10 in severity. He would prefer to have a nail hammered into his head rather than experiencing the type of pain that he is currently experiencing due to the headache. He feels that the left temporal veins become "bulge." He has ptosis of the left eye, lacrimation in the left eye and left eye conjunctiva. He denied any nausea or vomiting with headaches. He does occasionally have some blurring of the vision on the left eye. He denied any jaw claudication. Currently, the patient is asymptomatic. He has tried multiple therapies both preventative and acute. He was on oxygen initially 10 years ago but that did not help. Currently , he is taking baclofen, gabapentin, lithium and verapamil. He was on Depakote but that was recently discontinued. The baclofen replaced Depakote. He had significant tremors with the Depakote. The best thing that works currently is the sumatriptan injections; however, he could only use a few a month due to availability and to prevent side effects. He did receive oral steroids in the past with minimal effect. The patient's daughter who is at bedside stated that he has been complaining of sinus pressure. The patient had an occipital nerve block last Thursday and still had 2 headaches following the injection. Lidocaine was only given in occipital nerve block. PAST MEDICAL HISTORY: Open heart surgery as a child for patent ductus arteriosus. PAST SURGICAL HISTORY: Appendix removal, right lower extremity surgery for compartment syndrome. FAMILY HISTORY: There is no history of stroke or seizures, no history of migraine headaches. 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 He denied any recent tobacco or alcohol use. REVIEW OF SYSTEMS: A 10-point review of systems was obtained and otherwise negative except for what was mentioned in the HPI. PHYSICAL EXAM: Vitals: Temperature of 98.5, pulse of 66, respiratory rate of 16, oxygen saturation 100 and blood pressure of 133/77. General: Well- nourished, well- developed man in no acute distress. Head is normocephalic without obvious abnormality. Nose: Temporal tenderness. The superficial temporalis artery is palpable. There is no pain to palpation. No jaw claudication. Eyes: Conjunctivae and corneas are clear. Funduscopic examination revealed sharp disk margin with normal venous pulsation. Neck is supple and symmetrical. Lungs: Clear to auscultation bilaterally. Cardiovascular: Regular rate and rhythm. Normal radial pulses. Extremities: Normal range of motion with no cyanosis. Skin: No skin lesions or lacerations. Psych: Affect is broad and normal mood. Easy to establish rapport. Neurological Examination: Mental Status: Awake, alert and oriented to person , place, time, and general circumstances. Speech and language including expression, naming, repetition and comprehension was assessed and found to be normal. Cranial Nerves: Normal confrontation. Pupil mid range and reactive to light. Normal consensual response. Extraocular muscles are intact. No ptosis, conjugate or asymmetric nystagmus. Sensation intact on the forehead, cheeks and jaw region. No facial droop. Able to hear throughout the history process. Symmetric palatal elevation, normal strength against resistance. Tongue is symmetric and midline with atrophy or fasciculation. Motor function: No abnormal movements. No pronator drift. Normal bulk and tone throughout. Motor strength is 5/5 throughout. Reflexes; 1+ throughout, plantar flexor response. Sensation is intact to light touch throughout. Normal vibration and proprioception at the great toes bilaterally. Coordination is normal finger-to- nose and rapid alternating movements. Gait and station: Narrow based, normal stance and gait, no ataxia. DIAGNOSTIC STUDIES/LAB DATA: The patient has not had any intracranial imaging for over 10 years. Current laboratory workup is pending. ASSESSMENT: 1. Chronic cluster headaches - the patient was admitted to break the headache cycle. He has had intractable headache that has limited his ability to function at work and at home. We also would need to rule out any secondary causes for his worsening headaches. Need to rule out for any underlying sinus disease or structural abnormalities in the brainstem. PLAN/RECOMMENDATIONS: The patient has been admitted to the hospitalist service. We will start dihydroergotamine injections. Protocol is as following: I will first give a test dose of DHE 0.5 mg IV over 2 minutes. We need to make sure we have an EKG prior to the test dose injection. We will need to monitor for any blood pressure instability or chest pain. If so, we need to discontinue the DHE. If not, we will repeat the dose after one hour. If he can tolerate the DHE, we will repeat 1 mg dose every 8 hours for a 24-hour period. The patient again should be receiving Reglan 10 mg right before the test dose and every 8 hours following that. We will also start the patient on Solu-Medrol 250 mg IV every 12 hours. We have also ordered MRI of the brain and MRA of the head without contrast as well as CT of the sinuses to evaluate for any sinus disease. Neuro checks every 4 hours should be done. Continue oral hydration and advance his diet as tolerated. I have discussed this case with Dr. Cleaning and Dr. White. [id number]/[facility] #: [id number] TODD
[2017-06-24] MEDS: Baclofen TAB* 10 MG PO SCH ×2 (14:09→20:57)
[2017-06-24] MEDS: Gabapentin CAP(*) 300 MG PO SCH (14:09)
--- NOTE | 2017-06-24 15:36 | RAD ---
HISTORY: Intractable headache COMPARISONS: April 06, 2007 TECHNIQUE: 3-D axial uhar-cr-kcxeia MR angiography was performed of the head to include the [place] of [place]. Multiple 3-D maximum intensity projection reconstructions are also submitted for review. FINDINGS: RIGHT VERTEBRAL ARTERY: The distal right vertebral artery is unremarkable, without stenosis. LEFT VERTEBRAL ARTERY: The distal left vertebral artery is unremarkable, without stenosis. DOMINANCE: The vertebral arteries are codominant. DISTAL RIGHT CERVICAL INTERNAL CAROTID ARTERY: The distal right cervical internal carotid artery is unremarkable. DISTAL LEFT CERVICAL INTERNAL CAROTID ARTERY: The distal left cervical internal carotid artery is unremarkable. INTRACRANIAL CIRCULATION: There is no aneurysm, vascular malformation, occlusion, or stenosis of the visualized intracranial circulation. The anterior communicating artery complex is clear. Bilateral posterior communicating arteries are identified. Incidentally noted is a fenestration of the proximal third of the basilar artery. The anterior commuting artery is dominant over the A1 segment of the left anterior cerebral artery. OTHER FINDINGS: None IMPRESSION: NO ANEURYSM, VASCULAR MALFORMATION, OCCLUSION, OR STENOSIS OF THE VISUALIZED INTRACRANIAL CIRCULATION.
--- NOTE | 2017-06-24 15:39 | RAD ---
HISTORY: Intractable headaches COMPARISONS: May 05, 2007 TECHNIQUE: The following sequences were obtained of the head: Sagittal T1-weighted images, axial T2-weighted images, axial FLAIR images, axial susceptibility weighted images, axial T1-weighted images. Additionally, axial diffusion-weighted images were obtained with calculated apparent diffusion coefficients. FINDINGS: HEMORRHAGE/INFARCT: There is no hemorrhage or acute infarct. MASSES/SHIFT: There is no mass or shift. EXTRA-AXIAL SPACES/MENINGES: There are no extra-axial fluid collections. SULCI AND VENTRICLES: The sulci and ventricles are normal in size and position for the patient's stated age. CEREBRUM: There are no focal parenchymal abnormalities. BRAINSTEM: There are no focal parenchymal abnormalities. CEREBELLUM: There are no focal parenchymal abnormalities. The cerebellar tonsils are normal in size and position. SELLA: The sella is normal. PINEAL: The pineal region is clear. CP ANGLE/TEMPORAL BONES: The labyrinthine structures are grossly normal. VESSELS: Normal flow-voids are noted within the visualized vertebral vasculature. DIFFUSION ABNORMALITIES: There are no diffusion abnormalities. PARANASAL SINUSES/MASTOIDS: There is minimal thickening of ethmoid air cells. There is trace left mastoid effusion. ORBITS: The orbits are unremarkable. BONES AND SOFT TISSUE: No bone or soft tissue abnormalities are noted. OTHER: None IMPRESSION: 1. MINIMAL SINUS MUCOSAL INFLAMMATORY DISEASE, WITH A TRACE LEFT MASTOID EFFUSION, WITHOUT AIR-FLUID LEVEL TO SUGGEST ACUTE SINUSITIS. 2. OTHERWISE, UNREMARKABLE MRI OF THE BRAIN.
--- NOTE | 2017-06-24 15:50 | RAD ---
CLINICAL HISTORY: Cluster headaches COMPARISON: MRI of the brain dated June 24, 2017 TECHNIQUE: Contiguous axial CT images were obtained through the paranasal sinuses, without intravenous contrast, with coronal and sagittal multiplanar reformations. FINDINGS: NASAL CAVITY: Septum: The septum is midline without deviation. Right: Clear Left: Clear SINUSES AND DRAINAGE PATHWAYS: Frontal sinuses: Unremarkable. Maxillary sinuses: Unremarkable Ethmoid sinuses: There is minimal mucosal thickening of ethmoid air cells. Ostiomeatal complex: Patent without obstruction or occlusion. Sphenoid sinuses: Unremarkable. Anatomic variations: No significant variations. Orbits: Unremarkable. Anterior cranial fossa: Normal. Other findings: There is a trace left mastoid effusion. IMPRESSION: MINIMAL SINUS MUCOSAL INFLAMMATORY DISEASE, WITHOUT AIR-FLUID LEVEL TO SUGGEST ACUTE SINUSITIS.
--- NOTE | 2017-06-24 15:52 | HP ---
HISTORY AND PHYSICAL: DATE OF ADMISSION: 06/24/17. ADMITTING PROVIDER: Dr. Sylvester Cleaning. PRIMARY CARE PHYSICIAN: Daisy Ardon NP. PRIMARY OUTPATIENT NEUROLOGIST: Dr. White. CHIEF COMPLAINT: Cluster headaches 10/10, recurrent. HISTORY OF PRESENT ILLNESS: Jeremias Foreman is a 56-year-old male, past medical history of DVT, completed course of warfarin for about 2 years; 10 years of cluster headaches that had worsened significantly since getting a nerve block last with Dr. White in his office. He had 2 excruciating ones that day and then again the night prior to admission, 10/10 throbbing, feeling like his eyes would burst out of his head. His girlfriend called Dr. White who recommended presenting for a direct admission the following day. He does state that he does get relief with the sumatriptan within about 10 minutes with both of these episodes, but he is about to run out. Dr. White was recommending MRI of his head with and without, an MRA, CT sinus without IV steroids, DHE protocol with pre-DHE Reglan and continuation of his other meds including the verapamil, gabapentin, lithium, and baclofen. He is also recommending high flow nasal cannula 15 L p.r.n. Patient attests he is not currently having any headache like symptoms. The case was also discussed with Dr. Mendoza, the insulation worker apprentice neurologist today. PAST MEDICAL HISTORY: DVT, cluster headaches, current smoker, binge drinker and history of cervical spondylosis C3-C4 with cord compression. PAST SURGICAL HISTORY: Anterior cervical diskectomy and allograft fusion at C3- C4 with anterior instrumentation. MEDICATIONS: Include: 1. Baclofen 10 mg p.o. t.i.d. 2. Verapamil 160 mg q.a.m. and noon and 240 mg q.h.s. 3. [place] 600 mg q.h.s. and 300 mg q.a.m. 4. Gabapentin 300 mg 8 a.m. and afternoon and 600 mg at bedtime. ALLERGIES: No known drug allergies. FAMILY HISTORY: Mom is alive, healthy. His dad fell, broke his hip, and from complications of that at age 70. 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 He attests to occasional alcohol use, but when asked to quantify, he says about 12 pack a weekend. His medical surrogate will have to be clarified. REVIEW OF SYSTEMS: Complete 14-point review of systems is negative except as per HPI. Denies any chest pain, shortness of breath, swelling in his legs. PHYSICAL EXAMINATION GENERAL APPEARANCE: In no acute distress, sitting in the admitting area, in plain clothes. VITAL SIGNS: 98.5, pulse 66, respiratory rate is 16, satting 100% on room air, blood pressure 133/77. HEENT: Normocephalic, atraumatic. Pupils equal, round and reactive to light. Extraocular motions intact. No scleral icterus. PULMONARY: Clear to auscultation bilaterally with no wheezes, rales, or rhonchi. CARDIOVASCULAR: Regular rate and rhythm with no murmurs, rubs or gallops. ABDOMEN: Soft, nontender, nondistended. No rebound, no guarding. No Urrutia's sign. EXTREMITIES: Warm, well perfused. No peripheral edema. NEUROLOGIC: Cranial nerves II through XII intact. Moving all extremities. Ambulating without any gait instability. SKIN: No lesions or rashes. LABORATORY DATA: White count 7.8, hemoglobin 15.0, hematocrit 44, platelets 267. Sodium 138, potassium 4.0, chloride 105, carbon dioxide 27, BUN 12, creatinine 0.88, glucose 91, magnesium 1.9, total bili is 0.4, AST 11, ALT 8, alk phos 68. IMAGING: None. EKG, bradycardic at 58, QTc 444. ASSESSMENT AND PLAN: Jeremias Foreman is a 56-year-old with 10 years of cluster headaches, worsened over the last 5 days after a nerve block, 10/10 excruciating pain when they occur, though relieved with sumatriptan. Dr. White is requesting a direct admission for IV steroids and DHE protocol. Patient was also discussed with Dr. Mendoza. I will continue his lithium, gabapentin, verapamil at home doses, get an MRI of his brain, MRA of the head. Dr. White requested the CT sinus without contrast. He is requesting Solu- Medrol with 250 mg IV q.12 hours and DHE 0.5 mg IV q.8 hours with Reglan 10 mg 5 minutes before the DHE treatment. For any headaches, high-flow 15 L nasal cannula p.r.n. He is being admitted under observation status. He is a full code. We will clarify with his medical surrogates. He is on a regular diet. [id number]/[facility] #: [id number] TDOD
[2017-06-24] MEDS ORDERED: Dihydroergotamine (D.H.E.)* 1 MG/ML 1 ML AMP IV ONE (19:00)
[2017-06-24] MEDS ORDERED: Verapamil TAB* 80 MG PO SCH (20:00)
[2017-06-24] MEDS ORDERED: Gabapentin CAP(*) 300 MG PO SCH (21:00)
[2017-06-24] MEDS ORDERED: Lithium Carbonate TAB* 300 MG PO SCH (21:00)
[2017-06-25] MEDS: methylPREDNISolone 125 MG* 250 MG in NS 0.9% 100 ML* 100 ML IVPB SCH ×2 (00:22→12:25)
[2017-06-25] MEDS ORDERED: Lithium Carbonate TAB* 300 MG PO SCH (08:00)
[2017-06-25] MEDS: Verapamil TAB* 80 MG PO SCH ×2 (09:07→12:31)
[2017-06-25] MEDS: Baclofen TAB* 10 MG PO SCH ×2 (09:07→13:56)
[2017-06-25] MEDS: Gabapentin CAP(*) 300 MG PO SCH ×2 (09:07→13:56)
[2017-06-25] MEDS ORDERED: Dihydroergotamine (D.H.E.)* 1 MG/ML 1 ML AMP IV SLOW PU ONE ×2 (09:30→17:30)
[2017-06-25] MEDS: Metoclopramide IV* 5 MG/ML 2 ML VIAL IV PRN (10:39)
[2017-06-25] MEDS ORDERED: methylPREDNISolone 125 MG* 2 ML VIAL ONE (11:49)
[2017-06-25 16:50] VITALS: BP 110/60
--- NOTE | 2017-06-26 06:53 | PN ---
NEUROLOGY PROGRESS NOTE: DATE OF SERVICE: 06/25/17 Neurology is following for the evaluation and treatment of chronic cluster headaches. CHIEF COMPLAINT: "No complaints. I would like to go home." SUBJECTIVE: The patient tolerated DHE without any side effects. He denied any chest pain, shortness of breath, nausea or vomiting. He has not had any headaches. He did not have any headaches overnight. He is extremely optimistic that this treatment is working. He received a total of 0.5 mg yesterday x2 and he will complete 1 mg x2 today. REVIEW OF SYSTEMS: As per HPI. PHYSICAL EXAMINATION: Vitals: Temperature of 98.2, pulse of 63, respiratory rate of 16, oxygen saturation of 99%, blood pressure of 116/68. General: Well-nourished, well-developed, alert, cooperative man in no acute distress. Normocephalic and atraumatic without obvious abnormality. Conjunctivae and cornea are clear. Supple neck. No carotic bruits. Clear to auscultation bilaterally. Regular rate and rhythm. Normal S1, S2. Extremities : Normal range of motion with no cyanosis. Neurological Examination: Mental status: Awake and alert; oriented to person, place, time and general circumstance. Cranial Nerves: Pupils equal, round, and reactive to light. Normal consensual response. Extraocular muscles are intact. No facial asymmetry. Tongue is symmetric and midline. Motor Examination: No abnormal movements. No pronator drift. 5/5 throughout. Reflexes: 1+ throughout with flexor plantar response. Sensation is intact to light touch throughout. Coordination: Normal [id number] and rapid alternating movement. Gait is narrow-based with normal stance and gait. LABS, IMAGING, AND OTHER DIAGNOSTIC TESTING: Brain MRI without contrast completed on 06/24/17 showed minimal sinus mucosal inflammatory disease with a trace left mastoid effusion without air fluid level to suggest acute sinusitis. Otherwise unremarkable MRI of the brain. I personally reviewed the study. MRA head without contrast showed no evidence of intracranial stenosis or aneurysm. CT of the sinus completed on 06/24/17 showed minimal sinus mucosal inflammatory disease without air-fluid level to suggest acute sinusitis. Electrocardiogram completed on 06/24/17 showed sinus bradycardia with a rate of less than 60. Otherwise normal EKG. Laboratory data: WBC of 10.8, platelets 267,000, sodium 138, ESR of 10. ASSESSMENT: Chronic cluster headache - seems to be responding to DHE and steroid therapy; however, this is still early on the course as the patient's symptoms are intermittent. We have given him a total of 3 mg over the last 36 hours of DHE. He has received Solu-Medrol 250 mg every 8 hours. The patient has not had any side effects from DHE and is tolerating the medication well. He denied any nausea or vomiting. He has not needed Reglan. The patient is ready to go home. PLAN: Continue all preventive therapy with baclofen, gabapentin, lithium, and verapamil. I prescribed the patient Medrol Dosepak to take 60 mg daily for 3 days, 40 mg daily for 3 days, 20 mg daily for 3 days and to wean off by taking 10 mg daily for 3 days. He was also prescribed subcutaneous DHE 1 mL to take every 8 hours for the next 3 days. I instructed the patient to not use DHE if he has elevation in his blood pressure or symptoms of acute chest pain. He should not use DHE within 6 hours of having administered a triptan and do not administer triptan within 24 hours of having taken DHE. TIME SPENT: I spent a total of 30 minutes and greater than 50% was spent reviewing the plan of care and treatment plan with the patient and his partner at bedside. I also discussed the case in detail with the patient's provider, Andi, and bedside nurse. The patient will call Dr. White for any questions or if he has any symptoms of headaches. [id number]/[facility] #: [id number] MTDD
[2017-06-26] MEDS ORDERED: medroxyPROGESTERone TAB* 10 MG PO SCH ×2 (09:00)
[2017-06-26] MEDS ORDERED: methylPREDNISolone TAB* 4 MG PO SCH (09:00)
--- NOTE | 2017-06-26 09:05 | DS ---
CC: Daisy Ardon NP; Dr. White; Dr. Darin Chen.* DISCHARGE SUMMARY: DATE OF ADMISSION: 06/24/17 DATE OF DISCHARGE: 06/25/17 PRIMARY CARE PROVIDER: Daisy rAdon NP OUTPATIENT NEUROLOGIST: Dr. White. MY ATTENDING WHILE IN THE HOSPITAL: Dr. Darin Chen* (dictated by TON Combs). PRIMARY DISCHARGE DIAGNOSIS: Cluster headache. SECONDARY DISCHARGE DIAGNOSES: 1. Deep vein thrombosis. 2. Tobacco abuse. 3. Alcohol abuse. 4. Cervical spondylosis. STUDIES DONE WHILE IN THE HOSPITAL: Brain MRI from 06/24/17 read as minimal mucosal inflammatory disease with trace left mastoid effusion without air-fluid levels/acute sinusitis. Otherwise, unremarkable MRI of the brain. Sinuses CT read as minimal sinus mucosal inflammatory disease without air-fluid levels suggest acute sinusitis. Electrocardiogram from 06/24/17 shows normal sinus rhythm, normal axis. No ST segment changes. No blocks or hypertrophy, rate of 58, QTc of 444. No abnormalities. No significant changes from previous exam. Head MRA from 06/24/17 read as no aneurysm, vascular malformation, occlusion, or stenosis of the visualized intracranial circulation. MEDICATIONS: At discharge: 1. Verapamil 240 mg p.o. q.p.m. 2. Emerald carbonate 300 mg p.o. q.8 a.m. 3. Gabapentin 600 mg p.o. bedtime. 4. Gabapentin 300 mg p.o. b.i.d. 5. Verapamil 160 mg p.o. at 0800 and 1200. 6. Emerald carbonate 600 mg p.o. bedtime. 7. Baclofen 10 mg p.o. t.i.d. 8. Methylprednisolone 64 mg p.o. daily with taper. 9. Dihydroergotamine 1 mg subcutaneous q.8 hours x9. New medications at discharge: 1. Methylprednisolone. 2. Dihydroergotamine. Medications discontinued at discharge: None. HOSPITAL COURSE: This is a brief summary of the patient's presentation. For more detail, please see the history and physical from Dr. Sylvester Cleaning on . In brief, the patient is a 56-year-old male with past medical history significant for the above, who presented with 3 severe cluster headaches on the day of admission. This is after a nerve block last . The patient had been getting significant episodes and was using sumatriptan to abort them. The patient is on medications as above and these are not sufficient to control his medications. He was using sumatriptan more than his outpatient neurologist was comfortable, so he was admitted to the hospital for a DHE protocol. The patient was seen in consultation by Dr. Mendoza. The patient was given IV steroids and Reglan. The patient had no headaches while in the hospital. The patient had an EKG after DHE, which showed no ischemia. The patient otherwise tolerated everything well. The patient received a test dose of DHE followed by another 1 mg and then 2 mg on 06/25/17. The patient had no hypertension, tachycardia, chest pain, shortness of breath, or other reaction to the DHE. The patient remained headache-free. The patient had no other laboratory or vital sign abnormalities. The patient was stable for discharge to home on 06/25 with continuation of the DHE protocol and a steroid taper. PHYSICAL EXAMINATION AT DISCHARGE: General: The patient is a 56-year-old male , who appears stated age, sitting comfortably in bed, in no acute distress. Vital signs at the time of discharge: Temperature 98.1, pulse rate 66, respiratory rate 16, oxygen saturation 97% on room air, blood pressure 110/60. HEENT: Head normocephalic, atraumatic. Sclerae are anicteric. No conjunctival injection. Nasal mucosa moist. Oral mucosa moist. No pharyngeal erythema, discharge, or exudate. Neck: Supple, nontender. No lymphadenopathy. No carotid bruit auscultated. Cardiac: Regular rate and rhythm. No clicks, murmurs, gallops, or rubs. Pulses are 2+ in bilateral dorsal pedis, posterior tibialis, and radial areas. Respiratory: Clear to auscultation bilaterally. No wheezes, rales, or rhonchi. Good air exchange bilaterally. Abdomen: Soft, nontender, nondistended. Bowel sounds present and normoactive in all 4 quadrants. No hepatosplenomegaly. No abdominal bruits auscultated. Genitourinary: No suprapubic or CVA tenderness. Skin: Clean, dry , and intact. No rash. Neuro: Cranial nerves II through XII intact and no focal deficits. No photophobia, phonophobia, headache. Normal gait. No other abnormalities. Psychiatric: Pleasant and cooperative. DISCHARGE PLAN: The patient will be discharged to home. The patient will be continued on DHE subcutaneous, [facility] and take his first dose in the morning and then 8 subsequent doses. With that the patient will be on a steroid taper for at least the next 13 days. The patient will follow up closely with his primary care provider and his neurologist, Dr. White. It has been instructed to the patient that he should take his DHE routinely, so as to get the full effect of the DHE protocol. The patient should return to hospital for alarming symptoms such as chest pain, shortness of breath. The patient should call his neurologist for recurrent headaches. The patient should take oxygen if available when the headache occurs at high flow. The patient should engage in activity as tolerated. Exercise can help with cluster headaches. The patient should have regular unrestricted diet. The patient should quit smoking. TIME SPENT: Approximately 60 minutes were spent on this discharge, 30 of which were spent [id number] with the patient obtaining history and physical and discussing treatment plan. TON COMBS [id number]/[facility] #: [id number] TODD
== END 2017-06-25 18:52 | disposition home or self-care (01) ==
LOC: SSU 09:42
PROVIDERS: ADMIT Internal Medicine; ATTEND Student in an Organized Health Care Education/Training Program
DX: G44.009 Cluster headache syndrome, unspecified, not intractable (principal); I82.409 Acute embolism and thrombosis of unspecified deep veins of unspecified lower extremity; M47.892 Other spondylosis, cervical region; F17.210 Nicotine dependence, cigarettes, uncomplicated; F10.10 Alcohol abuse, uncomplicated; Z79.899 Other long term (current) drug therapy; R00.1 Bradycardia, unspecified; H53.8 Other visual disturbances; J32.9 Chronic sinusitis, unspecified
CPT/HCPCS: 36415; 70486; 70544; 70551; 80053; 83735; 85025; 85652; 93005; 96365; 96366; 96375; 96376; A9270-GY; G0378; J1110; J2765; J2930

== ENCOUNTER 2018-03-24 07:35 | Emergency (ER) | payer OTHER ==
--- OUTSIDE RECORDS SUMMARY | 2018-03-24 07:41 | XMS REPORT | Continuity of Care Document ---
:1960 External Reference #:[id number] Author Name Kevin Toussaint MD Address [address] [place] [address] Care Team Providers Name Role Phone Jose J White M.D. Care Team Information Magnetic Tester Unavailable Daisy Ardon NP Primary Care Physician Unavailable Payers Type Date Identification Numbers Payment Provider Subscriber Policy Number: [id number] [place] Jeremias Foreman PayID: [id number] [address] [place] [address] Advance Directives Description No Information Available Problems Date Description Provider Status Onset: 11/08/2012 Dysfunction of eustachian tube Kevin Toussaint MD Active Onset: 03/18/2018 Other specified disorders of Eustachian Kevin Toussaint MD Active tube, left ear Onset: 03/18/2018 Chronic serous otitis media Kevin Toussaint MD Active Onset: 10/19/2014 Perforation of tympanic membrane Kevin Toussaint MD Active Family History Date Family Member(s) Problem(s) Comments General Migraine Social History Type Date Description Comments Sex Unknown 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 Tobacco Use Start: Unknown Current Cigarette Smoker 1 pt is unsure how many Pack Daily years he has smoked Tobacco Use Start: Unknown Never Smoked Cigars Tobacco Use Start: Unknown Never Smoked A Pipe Smokeless Tobacco Never Used Smokeless Tobacco ETOH Use Currently occasionally consumes alcohol Tobacco Use Start: Unknown Patient is a current smoker, smokes every day Allergies, Adverse Reactions, Alerts Description No Known Drug Allergies Medications Medication Date Status Form Strength Qnty SIG Indications Ordering Provider Dyazide 10/19/ Active Capsules 37.5-25mg 30caps 1 by mouth H69.82 Ruparshona 2014 one per day , Kevin CHAVEZ in in the morning Verapamil HCL 00/00/ Active Tablets 80mg Take Three Unknown 0000 Tablets By Mouth Every Morning And AT Night And 2 Tablets AT Midday [place] 00/00/ Active Capsules 150mg Take One Unknown Carbonate 0000 Capsule By Mouth Every Morning Baclofen / Active Tablets 10mg Take 1 Unknown 0000 Tablet By Mouth Twice A Day For 3 Days Then 1 Three Times A Day Gabapentin / Active Capsules 300mg Take 1 Unknown 0000 Capsule By Mouth Twice A Day And 2 Capsules AT Bedtime Sumatriptan / Active Solution 4mg/0.5ML Use 1 Unknown Succinate 0000 Auto-Injec Injection SQ t bid prn MDD 2 Injections Prednisone 09/24/ Hx Tablets 20mg 10tabs 1 tablets po 381.81 Manny Temple 2012 - qd for 10 Strominge 03/08/ days r, M.DHumble 2014 Afrin Nasal 09/08/ Hx Solution 0.05% 1units 2 sprays Manny Temple [place] 2012 - each nose Strominge 03/08/ every 6 r, M.D. 2015 hours for 3 days on and then 1 day off, then 3 days on and then stop Verapamil HCL / Hx Tablets 120mg 2 by mouth Christopher 0000 - tid prn Jose J Oden 03/17/ MAndrei 2018 Gabapentin /00/ Hx Unknown - 2014 Oxycodone HCL 00/ Hx Unknown - 2014 [place] /00/ Hx Unknown 2014 Immunizations Description No Information Available Vital Signs Date Vital Result Comment 03/18/2018 8:57am Weight 218.00 lb Weight 98.885 kg Height 73 inches 6'1" Height in cm's 185.4 cm BMI (Body Mass Index) 28.8 kg/m2 10/19/2014 3:22pm BP Systolic 103 mmHg BP Diastolic 60 mmHg Heart Rate 65 /min Respiratory Rate 17 /min Weight 217.00 lb Weight 98.431 kg Height 73 inches 6'1" Height in cm's 185.4 cm BMI (Body Mass Index) 28.6 kg/m2 03/09/2014 3:54pm BP Systolic 111 mmHg BP Diastolic 68 mmHg Heart Rate 74 /min Respiratory Rate 17 /min Weight 217.00 lb Weight 98.431 kg Height 73 inches 6'1" Height in cm's 185.4 cm BMI (Body Mass Index) 28.6 kg/m2 10/28/2012 3:05pm BP Systolic 126 mmHg BP Diastolic 72 mmHg Heart Rate 68 /min Respiratory Rate 16 /min Weight 205.00 lb Weight 92.988 kg Height 73 inches 6'1" Height in cm's 185.4 cm BMI (Body Mass Index) 27.0 kg/m2 09/24/2012 10:27am BP Systolic 109 mmHg BP Diastolic 70 mmHg Heart Rate 80 /min Respiratory Rate 16 /min Weight 205.00 lb Weight 92.988 kg Height 73 inches 6'1" Height in cm's 185.4 cm BMI (Body Mass Index) 27.0 kg/m2 09/17/2012 9:00am BP Systolic 107 mmHg BP Diastolic 65 mmHg Heart Rate 88 /min Respiratory Rate 16 /min Weight 205.00 lb Weight 92.988 kg Height 73 inches 6'1" Height in cm's 185.4 cm BMI (Body Mass Index) 27.0 kg/m2 09/08/2012 1:55pm BP Systolic 102 mmHg BP Diastolic 57 mmHg Heart Rate 74 /min Respiratory Rate 17 /min Weight 205.00 lb Weight 92.988 kg Height 73 inches 6'1" Height in cm's 185.4 cm BMI (Body Mass Index) 27.0 kg/m2 Results Description No Information Available Procedures Date Code Description Status 03/18/2018 26988 Tympanostomy W/Tube Local Or Topical Anes. Completed 09/17/2012 46618 Tympanometry Completed 09/17/2012 46273 Tympanostomy W/Tube Local Or Topical Anes. Completed 09/08/2012 89541 Tympanometry Completed Encounters Type Date Location Provider Dx Diagnosis Office Visit 03/18/2018 [place] Kevin Toussaint H69.82 Other specified 9:00a 02/23/07 disorders of Eustachian tube, left ear H65.22 Chronic serous otitis media, left ear Office Visit 10/19/2014 [place],Kevin Crawford 381.81 Dysfunction Of 3:15p 02/23/07 Eustachian Tube 384.20 Perforation Of Tympanic Membrane/Unspecified Office Visit 03/09/2014 [place],Kevin Crawford 381.81 Dysfunction Of 4:00p 02/23/07 Eustachian Tube 384.20 Perforation Of Tympanic Membrane/Unspecified Office Visit 10/28/2012 Xenia Mcclure Ashu 381.81 Dysfunction Of 3:45p 02/23/07 Eustachian Tube Office Visit 09/24/2012 [place] Mariya Maya 381.81 Dysfunction Of 10:30a 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 Office Visit 09/17/2012 [place] Maryia Maya 381.81 Dysfunction Of 9:00a 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 Tube Office Visit 09/08/2012 [place] Mariya Maya 381.81 Dysfunction Of 2:00p 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 patient underwent a left ear tympanostomy tube without difficulty recheck back 6 weeks
[2018-03-24 07:47] VITALS: BP 118/84
--- NOTE | 2018-03-24 08:03 | UC ---
Hand/Wrist HPI - HPI Summary HPI Summary: Patient is a 57-year-old male with a two-week history of right wrist pain after hitting his truck door forcefully with the palm of his hand. Since then he has had numbness and tingling of his right second third and fourth digits. He has a history of cervical spinal stenosis. Scheduled for follow-up for this in [facility] in [facility] - History Of Current Complaint Chief Complaint: UCUpperExtremity Stated Complaint: HAND/WRIST INJURY Time Seen by Provider: 03/24/18 07:40 Hx Obtained From: Patient Onset/Duration: Sudden Onset, Lasting Weeks Severity Initially: Moderate Severity Currently: Moderate Pain Intensity: 8 Pain Scale Used: 0-10 Numeric Character Of Pain: Dull, Aching, Throbbing Aggravating Factor(s): Movement Alleviating Factor(s): Nothing Associated Signs And Symptoms: Positive: Numbness/Tingling Related History: Dominant Hand Right - Allergies/Home Medications Allergies/Adverse Reactions: Allergies Allergy/AdvReac Type Severity Reaction Status Date / Time No Known Allergies Allergy Verified 12/26/15 17:31 PMH/Surg Hx/FS Hx/Imm Hx Previously Healthy: Yes Cardiovascular History: Hypertension Other History Of: Negative For: HIV, Hepatitis B, Hepatitis C - Surgical History Surgical History: Yes Surgery Procedure, Year, and Place: PDA SURGERY A CHILD,. T&A. COMPARTMENT SYNDROME right leg. ACDF- C3/4 - Family History Known Family History: Positive: None, Hypertension Negative: Cardiac Disease - Social History Alcohol Use: Occasionally Substance Use Type: None Smoking Status (MU): Heavy Every Day Tobacco Smoker Type: Cigarettes Amount Used/How Often: 1 ppd - Immunization History Most Recent Influenza Vaccination: never Most Recent Tetanus Shot: utd Most Recent Pneumonia Vaccination: neverq Review of Systems All Other Systems Reviewed And Are Negative: Yes Constitutional: Positive: Negative Skin: Positive: Negative Eyes: Positive: Negative ENT: Positive: Negative Respiratory: Positive: Negative Cardiovascular: Positive: Negative Gastrointestinal: Positive: Negative Genitourinary: Positive: Negative Motor: Positive: Negative Neurovascular: Positive: Negative Musculoskeletal: Positive: Arthralgia Neurological: Positive: Numbness Psychological: Positive: Negative Physical Exam Triage Information Reviewed: Yes Appearance: Well-Appearing, No Pain Distress, Well-Nourished Vital Signs: Initial Vital Signs Temp 98.2 F 03/24/18 07:42 Pulse 88 03/24/18 07:42 Resp 18 03/24/18 07:42 BP 118/84 03/24/18 07:42 Pulse Ox 98 03/24/18 07:42 Vital Signs Reviewed: Yes ENT: Positive: Hearing grossly normal. Negative: Nasal congestion, Nasal drainage, Trismus, Muffled voice Neck: Positive: Supple, Nontender, No Lymphadenopathy Respiratory: Positive: Lungs clear, Normal breath sounds, No respiratory distress, No accessory muscle use Cardiovascular: Positive: RRR, No Murmur Musculoskeletal: Positive: ROM Limited @ - right wrist /painful ROM Neurological: Positive: Alert Psychological Exam: Normal Skin Exam: Normal Diagnostics - Radiology No standard instances Radiology Interpretation Completed By: Radiologist Summary of Radiographic Findings: right wrist: NO ACUTE OSSEOUS INJURY. IF SYMPTOMS PERSIST, RECOMMEND REPEAT IMAGING. Hand/Wrist Course/Dx - Differential Dx/Diagnosis Provider Diagnosis: Right carpal tunnel syndrome, Right wrist sprain Discharge - Sign-Out/Discharge Documenting (check all that apply): Patient Departure All imaging exams completed and their final reports reviewed: Yes - Discharge Plan Condition: Stable Disposition: HOME Prescriptions: Naproxen [Naprosyn 500 mg tab] 500 mg PO BID PRN #30 tablet PRN Reason: Pain Patient Education Materials: Wrist Sprain (ED) Referrals: Neal Fisher MD [Medical Doctor] - As Soon As Possible Additional Instructions: wear splint - Billing Disposition and Condition Condition: STABLE Disposition: Home
== END 2018-03-24 08:54 | disposition home or self-care (01) ==
LOC: UCEAST 07:35
DX: S63.501A Unspecified sprain of right wrist, initial encounter (principal); G56.01 Carpal tunnel syndrome, right upper limb; F17.210 Nicotine dependence, cigarettes, uncomplicated; I10 Essential (primary) hypertension; W22.8XXA Striking against or struck by other objects, initial encounter; Y92.9 Unspecified place or not applicable
CPT/HCPCS: 99213; G0463